=== PATIENT | female | born 1965 | race Caucasian/White ===

== ENCOUNTER 2020-12-25 06:27 | Day surgery (SDC) | payer OTHER, SELFPAY ==
[~2020-12-25] VITALS: Ht 182.9 cm; Wt 81.6 kg
[2020-12-25] MEDS ORDERED: fentaNYL citrate 0.05 MG/ML VIAL ONE (07:32)
[2020-12-25] MEDS ORDERED: MIDAZOLAM 5 MG/5 ML VIAL ONE (07:32)
[2020-12-25] MEDS ORDERED: LIDOCAINE 2% 100 MG/5 ML UJET TP ONE ×2 (07:32→08:20)
[2020-12-25] MEDS ORDERED: diphenhydrAMINE 50 MG/ML VIAL ONE (07:32)
[2020-12-25] MEDS ORDERED: fentaNYL citrate 0.05 MG/ML VIAL IVP ONE (08:20)
[2020-12-25] MEDS ORDERED: MIDAZOLAM 2 MG/2 ML VIAL IVP ONE (08:20)
[2020-12-25] MEDS ORDERED: SIMETHICONE 40 MG/0.6 ML PO ONE (08:20)
[2020-12-25] MEDS ORDERED: SIMETHICONE 40 MG/0.6 ML ONE (08:50)
[2020-12-25] MEDS ORDERED: EPINEPHrine PFS 0.1 MG/ML SYR IVP ONE (08:50)
== END 2020-12-25 09:47 | disposition home or self-care (01) ==
LOC: MDS 06:27 → MMU 06:28 → MDS 09:47
PROVIDERS: ATTEND Internal Medicine Gastroenterology
DX: K62.5 Hemorrhage of anus and rectum (principal); D12.0 Benign neoplasm of cecum; D12.3 Benign neoplasm of transverse colon; E11.9 Type 2 diabetes mellitus without complications; I10 Essential (primary) hypertension; Z86.73 Personal history of transient ischemic attack (TIA), and cerebral infarction without residual deficits; Z79.84 Long term (current) use of oral hypoglycemic drugs; Z79.82 Long term (current) use of aspirin; Z79.899 Other long term (current) drug therapy; Z20.828 Contact with and (suspected) exposure to other viral communicable diseases
CPT/HCPCS: 45380; 45385; 88305; J0171; J2250; J3010; U0003; J1200